=== PATIENT | female | born 1975 | race African-American/Black ===

== ENCOUNTER 2019-06-11 15:48 | Emergency (ER) | payer SELFPAY ==
[2019-06-11 16:05] VITALS: BP 141/75; PULSE 95; TEMP 98.2; BMI 28.2
--- NOTE | 2019-06-11 16:05 | PDOC ---
Rapid Medical Evaluation Time Seen by Provider: 06/11/19 16:01 Medical Evaluation: 06/11/19 16:01 I have performed a brief in-person evaluation of this patient. The patient presents with a chief complaint of: abd pain x 2 weeks, foul smelling urine, sent by urgent care. LMP 06/04, neg upreg at [facility] Pertinent physical exam findings: +R CVA tenderness and RUQ tenderness I have ordered the following: labs, urine The patient will proceed to the ED for further evaluation. Discharge Disposition - Diagnosis Abdominal pain - Referrals - Patient Instructions - Post Discharge Activity
[2019-06-11] MEDS ORDERED: ACETAMINOPHEN 1000 MG/100 ML VIAL (NON FORMULARY) IVPB ONE (16:53)
[2019-06-11] MEDS ORDERED: SODIUM CHLORIDE 1,000 ML IV STA (16:53)
[2019-06-11 16:55] LABS: BASO % 0.5 % (0-2.0); EOS % 1.6 % (0-4.5); HEMATOCRIT 33.9 % (32.4-45.2); HEMOGLOBIN 10.9 GM/dL (10.7-15.3); LYMPH % 39.8 % (8-40); MCH 27.1 pg (25.7-33.7); MEAN CELL VOLUME 84.7 fl (80-96); MEAN PLT VOLUME 8.2 fl (7.5-11.1); MONO % 7.4 % (3.8-10.2); NEUT % 50.7 % (42.8-82.8); PLATELET COUNT 363 K/MM3 (134-434); RBC 4.01 M/mm3 (3.60-5.2); RDW 16.7 % (11.6-15.6); WHITE BLOOD COUNT 5.1 K/mm3 (4.0-10.0)
[2019-06-11] MEDS ORDERED: ACETAMINOPHEN INJECTION 100 ML IVPB ONE (17:04)
--- NOTE | 2019-06-11 17:04 | PDOC ---
History of Present Illness - General Chief Complaint: Pain, Acute Stated Complaint: ABD PAIN Time Seen by Provider: 06/11/19 16:01 History Source: Patient Exam Limitations: No Limitations Past History - Travel Traveled outside of the country in the last 30 days: No Close contact w/someone who was outside of country & ill: No - Past Medical History Allergies/Adverse Reactions: Allergies Allergy/AdvReac Type Severity Reaction Status Date / Time iv dye Allergy Uncoded 06/11/19 16:06 Home Medications: Ambulatory Orders Cephalexin Monohydrate [Keflex -] 500 mg PO BID #20 capsule 06/11/19 - Psycho Social/Smoking Cessation Hx Smoking History: Never smoked Have you smoked in the past 12 months: No Information on smoking cessation initiated: No Hx Alcohol Use: No Drug/Substance Use Hx: No Review of Systems - Review of Systems Able to Perform ROS?: Yes Comments:: 06/11/19 19:05 CONSTITUTIONAL: Absent: fever, chills, diaphoresis, generalized weakness, malaise, loss of appetite HEENT: Absent: rhinorrhea, nasal congestion, throat pain, throat swelling, difficulty swallowing, mouth swelling, ear pain, eye pain, visual Changes CARDIOVASCULAR: Absent: chest pain, loss of consciousness, palpitations, irregular heart rate, peripheral edema RESPIRATORY: Absent: cough, shortness of breath, dyspnea with exertion, orthopnea, wheezing, stridor, hemoptysis GASTROINTESTINAL: Present: Abdominal pain absent: abdominal distension, nausea, vomiting, diarrhea, constipation, melena, hematochezia GENITOURINARY: Present: Dysuria, foul-smelling odor, right flank pain absent: frequency, urgency, hesitancy, hematuria, genital pain MUSCULOSKELETAL: Absent: myalgia, arthralgia, joint swelling SKIN: Absent: rash, itching, pallor HEMATOLOGIC/IMMUNOLOGIC: Absent: easy bleeding, easy bruising, lymphadenopathy, frequent infections ENDOCRINE: Absent: unexplained weight gain, unexplained weight loss, heat intolerance, cold intolerance NEUROLOGIC: Absent: headache, focal weakness or paresthesias, dizziness, unsteady gait, seizure, mental status changes, bladder or bowel incontinence PSYCHIATRIC: Absent: anxiety, depression, suicidal or homicidal ideation, hallucinations. Is the patient limited French proficient: No *Physical Exam - Vital Signs Last Vital Signs Temp Pulse Resp BP Pulse Ox 98.2 F 95 H 18 141/75 98 06/11/19 16:02 06/11/19 16:02 06/11/19 16:02 06/11/19 16:02 06/11/19 16:02 - Physical Exam 06/11/19 19:06 GENERAL: Well developed, well nourished. Awake and alert. No acute distress. HEENT: Normocephalic, atraumatic. PERRLA, EOMI. No conjunctival pallor. Sclera are non- icteric. Moist mucous membranes. NECK: Supple. Full ROM. No lymphadenopathy. CARDIOVASCULAR: Regular rate and rhythm. No murmurs, rubs, or gallops. Distal pulses are 2+ and symmetric. PULMONARY: No evidence of respiratory distress. Lungs clear to auscultation bilaterally. No wheezing, rales or rhonchi. ABDOMINAL: TTP of the R mid abdomen. Soft. Non-tender. Non-distended. No rebound or guarding. No organomegaly. Normoactive bowel sounds. MUSCULOSKELETAL Normal range of motion at all joints. No bony deformities or tenderness. (+) R CVA tenderness. EXTREMITIES: No cyanosis. No clubbing. No edema. No calf tenderness. SKIN: Warm and dry. Normal capillary refill. No rashes. No jaundice. NEUROLOGICAL: Alert, awake, appropriate. Cranial nerves 2-12 intact. No deficits to light touch and temperature in face, upper extremities and lower extremities. No motor deficits in the in face, upper extremities and lower extremities. Normoreflexic in the upper and lower extremities. Normal speech. Toes are down-going bilaterally. Gait is normal without ataxia. PSYCHIATRIC: Cooperative. Good eye contact. Appropriate mood and affect. ED Treatment Course - LABORATORY CBC & Chemistry Diagram: 06/11/19 16:30 06/11/19 16:30 - ADDITIONAL ORDERS Additional order review: 06/11/19 16:30 RBC 4.01 MCV 84.7 MCHC 32.0 RDW 16.7 H MPV 8.2 Neutrophils % 50.7 Lymphocytes % 39.8 Monocytes % 7.4 Eosinophils % 1.6 Basophils % 0.5 - RADIOLOGY Radiology Studies Ordered: Category Date Time Status SPIRAL- RENAL-STONE CT [CT] Stat CT Scan 06/11/19 16:53 Ordered Medical Decision Making - Medical Decision Making 06/11/19 18:09 The patient is a 44-year-old female presents to the ER today for abdominal pain. She states that the pain is been going on for 1 week. She notes that she is having dysuria and foul-smelling odor. She also notes that she is having some right flank pain which is sharp. Admits to associated nausea. Denies vomiting, diarrhea, fevers. She was seen and evaluated at an urgent care today and told she had blood in her urine. She was told to come to the ER for CT scan. A/P: Abdominal pain, dysuria On exam patient with right flank pain and CVA tenderness. CT, labs ordered. Urine shows 2+ leuks with over 400 bacteria. We will treat with Keflex as a UTI . CT abdomen pelvis showed no evidence of kidney stones, cholecystitis or appendicitis. There is a subcutaneous stranding over the right flank No cellulitus on exam however there is some mild induration over the right flank. Keflex will treat cover both. We will discharge home to have patient follow-up with her primary care doctor. Surgical consult also given if the induration does not resolve. I discussed the physical exam findings, ancillary test results and final diagnoses with the patient. I answered all of the patient's questions. The patient was satisfied with the care received and felt comfortable with the discharge plan and treatment plan. The Patient agrees to follow up with the [facility] physician/specialist within 24-72 hours. Return precautions were given. Discharge - Discharge Information Problems reviewed: Yes Clinical Impression/Diagnosis: Abdominal pain Qualifiers: Abdominal location: right upper quadrant Qualified Code(s): R10.11 - Right upper quadrant pain UTI (urinary tract infection) Qualifiers: Urinary tract infection type: acute cystitis Hematuria presence: with hematuria Qualified Code(s): N30.01 - Acute cystitis with hematuria Condition: Stable Disposition: HOME - Admission No - Additional Discharge Information Prescriptions: Cephalexin Monohydrate [Keflex -] 500 mg PO BID #20 capsule - Follow up/Referral Referrals: Mina Choe MD [Staff Physician] - - Patient Discharge Instructions Patient Printed Discharge Instructions: DI for Urinary Tract Infection (UTI) Additional Instructions: You were evaluated for your abdominal pain today. You have a urinary tract infection. Please take the Keflex twice a day for 10 days to help with your symptoms. Your CAT scan showed you have some soft tissue stranding which is also indicative of infection. This may be as underlying skin infection. The Keflex will also help to treat this. Please drink plenty of fluids and get plenty of rest. You may take Motrin 600 mg every 6 hours as needed for pain. Please follow-up with your primary care doctor within the week if your symptoms or not improving. You can also follow-up with a general surgeon if the right- sided pain does not get better within a week. Turn to the ER for worsening pain, fever, vomiting or if you have any changes in your symptoms. - Post Discharge Activity Work/Back to School Note: Back to Work
[2019-06-11 17:07] LABS: EPI CELLS 1.5 /HPF (0-5/HPF); HYALINE CASTS 23 /lpf (0-8); PH,URINE 6.5 (5.0-8.0); URINE APPEARANCE CLEAR; URINE BACTERIA 154.5 /hpf (NEGATIVE); URINE BILIRUBIN NEGATIVE (NEGATIVE); URINE COLOR YELLOW; URINE GLUCOSE (UA) NEGATIVE (NEGATIVE); URINE KETONE NEGATIVE (NEGATIVE); URINE LEUK ESTERASE 2+ (NEGATIVE); URINE NITRITE NEGATIVE (NEGATIVE); URINE PROTEIN NEGATIVE (NEGATIVE); URINE RBC 28 /hpf (0-4); URINE UROBILINOGEN 0.2 mg/dL (0.2-1.0); URINE WBC 89 /hpf (0-5)
[2019-06-11 17:32] LABS: ALBUMIN 3.5 g/dl (3.4-5.0); BILIRUBIN,TOTAL 0.1 mg/dL (0.2-1); BLOOD UREA NITROGEN 12.3 mg/dL (7-18); CALCIUM 8.9 mg/dL (8.5-10.1); CREATININE 0.9 mg/dL (0.55-1.3); POTASSIUM 4.2 mmol/L (3.5-5.1); TOT PROT 7.1 g/dl (6.4-8.2)
[2019-06-11] MEDS ORDERED: KETOROLAC TROMETHAMINE 30 MG/1 ML VIAL IVPUSH ONE (18:27)
[2019-06-11] MEDS ORDERED: KETOROLAC TROMETHAMINE 30 MG/1 ML VIAL ONE (18:42)
== END 2019-06-11 19:05 | disposition home or self-care (01) ==
LOC: JER 15:48
PROC: 3E033NZ Introduction of Analgesics, Hypnotics, Sedatives into Peripheral Vein, Percutaneous Approach (ICD-10-PCS; principal; 2019-06-11)
PROC: 3E0333Z Introduction of Anti-inflammatory into Peripheral Vein, Percutaneous Approach (ICD-10-PCS; 2019-06-11)
DX: N30.01 Acute cystitis with hematuria (principal)
CPT/HCPCS: 36415; 74176-TC; 80053; 81003; 83690; 84703; 85025; 87086; 87186; 99285-25; J0131; J7030

== ENCOUNTER 2020-04-30 13:58 | Emergency (ER) | payer OTHER ==
[2020-04-30 14:05] VITALS: BMI 29.0
[2020-04-30] MEDS ORDERED: ASPIRIN 81 MG CHEWABLE TABLETS PO ONE (15:04)
[2020-04-30] MEDS ORDERED: ACETAMINOPHEN 325 MG TABLET (FP) PO ONE ×2 (15:05→20:57)
[2020-04-30] MEDS ORDERED: SODIUM CHLORIDE 1,000 ML IV ONE (15:05)
[2020-04-30] MEDS ORDERED: ASPIRIN 81 MG CHEWABLE TABLETS ONE (15:10)
[2020-04-30] MEDS ORDERED: ACETAMINOPHEN 325 MG TABLET (FP) ONE ×2 (15:10→20:59)
[2020-04-30 15:47] LABS: VENOUS BASE EXCESS -7.7 mmol/L (-2-2); VENOUS O2 SATURATION 86.9 % (70-80); VENOUS PCO2 39.4 mmHg (38-52); VENOUS PH 7.287 (7.310-7.410)
[2020-04-30 15:57] LABS: BASO % 0.3 % (0-2.0); EOS % 1.8 % (0-4.5); HEMATOCRIT 34.4 % (32.4-45.2); LYMPH % 48.1 % (8-40); MCH 26.3 pg (25.7-33.7); MCHC 31.9 g/dl (32.0-36.0); MEAN CELL VOLUME 82.4 fl (80-96); MEAN PLT VOLUME 8.7 fl (7.5-11.1); MONO % 8.5 % (3.8-10.2); NEUT % 41.3 % (42.8-82.8); PLATELET COUNT 353 K/MM3 (134-434); RBC 4.17 M/mm3 (3.60-5.2); RDW 18.7 % (11.6-15.6); WHITE BLOOD COUNT 4.2 K/mm3 (4.0-10.0)
[2020-04-30 16:00] LABS: CHLORIDE 109 mmol/L (98-107); SODIUM 139 mmol/L (136-145)
[2020-04-30 16:03] LABS: ALBUMIN 3.9 g/dl (3.4-5.0); ANION GAP 6 MMOL/L (8-16); CO2 24 mmol/L (21-32); GLUCOSE,RANDOM 83 mg/dL (74-106); LIPASE 156 U/L (73-393); MAGNESIUM 2.1 mg/dL (1.8-2.4)
[2020-04-30 16:05] LABS: CREATININE 0.9 mg/dL (0.55-1.3)
[2020-04-30 16:06] LABS: SGOT/AST 14 U/L (15-37); SGPT/ALT 32 U/L (13-61)
[2020-04-30 16:07] LABS: BILIRUBIN,TOTAL 0.2 mg/dL (0.2-1); TOT PROT 7.7 g/dl (6.4-8.2)
[2020-04-30 16:08] LABS: ALK PHOS 69 U/L (45-117)
[2020-04-30 16:11] LABS: N-TERMINAL BNP 21.4 pg/ml (5-125)
[2020-04-30 16:16] LABS: INR 0.96 (0.83-1.09); PROTHROMBIN TIME (PATIENT) 11.8 SEC (9.7-13.0)
[2020-04-30 16:18] LABS: EPI CELLS 9 /uL (0-25.1); HYALINE CASTS 0 /uL (0-3.1); URINE APPEARANCE CLEAR; URINE BACTERIA 650 /uL (0-1359); URINE BILIRUBIN NEGATIVE (NEGATIVE); URINE COLOR YELLOW; URINE GLUCOSE (UA) NEGATIVE (NEGATIVE); URINE KETONE NEGATIVE (NEGATIVE); URINE LEUK ESTERASE NEGATIVE (NEGATIVE); URINE NITRITE NEGATIVE (NEGATIVE); URINE PROTEIN NEGATIVE (NEGATIVE); URINE RBC 47 /uL (0-23.9); URINE UROBILINOGEN 0.2 mg/dL (0.2-1.0); URINE WBC 8 /uL (0-25.8)
[2020-04-30 16:19] LABS: ACTIVATED PTT 27.6 SECONDS (25.2-36.5)
[2020-04-30] MEDS ORDERED: diphenhydrAMINE HCL 25 MG CAPSULE (FP) PO ONE (17:49)
[2020-04-30 19:51] VITALS: TEMP 98
[2020-04-30] MEDS ORDERED: IBUPROFEN 600 MG TABLET (FP) PO ONE ×2 (20:57→21:00)
[2020-04-30 21:27] VITALS: BP 155/94; PULSE 76
== END 2020-04-30 21:31 | disposition home or self-care (01) ==
LOC: JER 13:58
PROC: 3E033GC Introduction of Other Therapeutic Substance into Peripheral Vein, Percutaneous Approach (ICD-10-PCS; principal; 2020-04-30)
PROC: 3E0337Z Introduction of Electrolytic and Water Balance Substance into Peripheral Vein, Percutaneous Approach (ICD-10-PCS; 2020-04-30)
DX: R07.89 Other chest pain (principal); J18.9 Pneumonia, unspecified organism
CPT/HCPCS: 36415; 71046-TC-FY; 71275-TC; 80053; 81003; 82550; 82803; 83690; 83735; 83880; 84484; 85025; 85379; 85610; 85730; 93005; 93010; 99285-25; C9803; Q9967; U0003

== ENCOUNTER 2023-11-29 16:51 | Emergency (ER) | payer OTHER ==
[2023-11-29 17:08] VITALS: PULSE 75; RESP 18; TEMP 98; BMI 29.9
[2023-11-29 18:43] LABS: HEMATOCRIT 42.6 % (32.4-45.2); HEMOGLOBIN 13.8 G/dL (10.7-15.3); MCH 31.6 pg (25.7-33.7); MCHC 32.4 g/dl (32.0-36.0); MEAN CELL VOLUME 97.4 fl (80-96); MEAN PLT VOLUME 8.5 fl (7.5-11.1); PLATELET COUNT 196.3 10^3/uL (134-434); RBC 4.37 10^6/uL (3.60-5.2); RDW 14.5 % (11.6-15.6); WHITE BLOOD COUNT 3.9 10^3/uL (4.0-10.8)
[2023-11-29 18:57] LABS: ALBUMIN 4.1 g/dl (3.4-5.0); BILIRUBIN,TOTAL 0.3 mg/dl (0.2-1); CALCIUM 9.1 mg/dl (8.5-10.1); POTASSIUM 3.7 mmol/L (3.5-5.1); TOT PROT 6.7 g/dl (6.4-8.2)
[2023-11-29 19:06] LABS: PLATELET ESTIMATE ADEQUATE
[2023-11-29 20:19] VITALS: BP 127/76
== END 2023-11-29 20:45 | disposition home or self-care (01) ==
LOC: FER 16:51
DX: R06.02 Shortness of breath (principal); B34.9 Viral infection, unspecified; R07.89 Other chest pain; R05.9 Cough, unspecified; R00.2 Palpitations; Z20.822 Contact with and (suspected) exposure to COVID-19
CPT/HCPCS: 0241U-QW; 36415; 71046-TC-FY; 80053; 84484; 85025; 93005; 99285-25